=== PATIENT | male | born 1985 | race Caucasian/White ===

== ENCOUNTER 2022-08-07 11:23 | Emergency (ER) | payer OTHER ==
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
--- NOTE | 2022-08-07 13:07 | CT ---
EXAMINATION TYPE: CT brain mony nair DATE OF EXAM: 08/07/2022 COMPARISON: None HISTORY: Fall, back of head pain CT DLP: 1508.[address] Brain: Unenhanced CT of the brain was performed. The ventricles, basal cisterns and sulci overlying the cerebral convexities demonstrate a normal appe arance. There is no evidence for intracranial hemorrhage or sulcal effacement. No mass effects are seen. If symptoms persist consider MRI. Osseous calvarium is intact. IMPRESSION: No acute intracranial process CT Cervical Spine: Unenhanced CT of the cervical spine was performed with bone and soft tissue window settings submitted . Coronal and sagittal reconstruction is obtained. There is normal alignment and prevertebral soft tissues. I do not see evidence for fracture or sublu xation. No significant degenerative changes are present. The lung apices are clear. IMPRESSION: No evidence for acute fracture or subluxation of the cervical spine.
[2022-08-07] MEDS ORDERED: KETOROLAC 15 MG/ML 1 ML VIAL IM STA (13:24)
[2022-08-07 13:36] VITALS: BP 158/108; PULSE 87; RESP 18; TEMP 99.1
== END 2022-08-07 13:36 | disposition home or self-care (01) ==
LOC: EC 11:23
DX: R51.9 Headache, unspecified (principal); I10 Essential (primary) hypertension; F32.A Depression, unspecified; F41.9 Anxiety disorder, unspecified; F43.10 Post-traumatic stress disorder, unspecified; F12.90 Cannabis use, unspecified, uncomplicated; Z79.83 Long term (current) use of bisphosphonates; W10.9XXA Fall (on) (from) unspecified stairs and steps, initial encounter
CPT/HCPCS: 72125; 70450; 99284; 96372; J1885